=== PATIENT | female | born 1945 | race Caucasian/White ===

== ENCOUNTER 2022-04-26 12:33 | Outpatient (CLI) | payer MEDICARE, OTHER | END 2022-04-26 12:34 | disposition home or self-care (01) | LOC: CSHULT 12:33 | PROVIDERS: ATTEND Internal Medicine | DX: R01.1 Cardiac murmur, unspecified (principal); I51.9 Heart disease, unspecified; I34.0 Nonrheumatic mitral (valve) insufficiency | CPT/HCPCS: 93306 ==